=== PATIENT | male | born 1945 | race Caucasian/White ===

== ENCOUNTER → 2016-10-25 | Outpatient (CLI) | payer OTHER | LOC: MMPC 11:11 | PROVIDERS: ATTEND Surgery | DX: K62.5 Hemorrhage of anus and rectum (principal) | CPT/HCPCS: 99201; G0463 ==

== ENCOUNTER 2016-11-01 09:16 | Day surgery (SDC) | payer OTHER ==
[~2016-11-01 09:16] MED LIST: LIDOCAINE W/ SODIUM BICARB 0.5 ML SYR ONE; Lactated Ringers 1,000 ML PRIMARY IV ONE
--- NOTE | 2016-11-01 10:40 | GEN.OPNOTE ---
Colonoscopy Procedure Note Surgery Date: 11/01/16 Preoperative Diagnosis: Rectal bleeding Postoperative Diagnosis: Colon polyp in the ascending colon at 130 cm. Diverticulosis. Internal hemorrhoids Procedure: Colonoscopy with snare polypectomy Anesthesia Provider: Sonja Reddy CRNA Anesthesia Type: MAC Indications: Patient data rectal bleeding Findings: Prep : Excellent Cecum : Scope advanced over the cecum and ileocecal valve clearly identified. Patient normal appearing cecum no pathology Ascending : Ascending colon had a small sessile polyp easily removed snare polypectomy. Transverse : Transverse colon had scattered diverticulum Sigmoid : Descending and sigmoid colon had diverticulosis Rectum : Rectum had internal hemorrhoids. There was a masslike effect over 1 the hemorrhoidal tissues biopsy was taken. He states his pain left cautery Digital Rectal Exam : No rectal masses palpated. No prostate nodules felt. Patient had a freely mobile coccyx probably has an old fracture A lubricated flexible colonoscope was inserted and passed to the blind end of the cecum.
== END 2016-11-01 11:17 | disposition home or self-care (01) ==
LOC: SDSC 09:16
PROVIDERS: ATTEND Surgery
DX: D12.2 Benign neoplasm of ascending colon (principal); K57.90 Diverticulosis of intestine, part unspecified, without perforation or abscess without bleeding; K64.8 Other hemorrhoids; K62.5 Hemorrhage of anus and rectum
CPT/HCPCS: 45385; J2704; 45384; J7120